=== PATIENT | female | born 1980 | race Caucasian/White ===

== ENCOUNTER → 2016-12-02 | Outpatient (CLI) | payer OTHER ==
--- NOTE | 2016-12-02 16:07 | US ---
Ultrasound Pelvis Complete (Transabdominal and Endovaginal) Including Duplex/Doppler Imaging History: R 20, pelvic mass on palpation. Leiomyomatous uterus. Technique: Transabdominal and endovaginal ultrasound images were obtained. Endovaginal images obtain ed for better evaluation of the uterine myometrium and adnexa. Duplex/Doppler imaging of adnexa. Findings: Uterus measures 14 x 8 x 7 cm. Endometrial is ill-defined. Diffusely heterogenous uterus w ith multiple leiomyomata are noted. Right posterior lower uterine segment intramural heterogenous 7.6 x 6 x 5.1 cm leiomyoma. Left anterior body intramural heterogenous 4.6 x 4.1 x 3.8 cm leiomyoma. Alfreda tral fundal heterogenous 4.1 x 3.3 x 2.5 cm leiomyoma. Posterior right fundal heterogenous 4.7 x 3.9 x 3.6 cm leiomyoma. Ovaries not visualized. No free fluid in the pelvis. Impression: 1. Leiomyomatous uterus with multiple leiomyomas measuring up to 7.6 cm as described above. 2. Endometrium appears ill-defined. 3. Ovaries not visualized. 5. No ascites. Consider Interventional Radiology consult for uterine fibroid embolization, if clinically indicated, with Dr. Sondra Grant at [phone].
== END ==
LOC: FIMAGING 14:33
DX: D25.9 Leiomyoma of uterus, unspecified (principal)